=== PATIENT | male | born 1935 | race African-American/Black ===

== ENCOUNTER 2020-07-02 11:43 | Emergency (ER) | payer OTHER, SELFPAY ==
[~2020-07-02] VITALS: Ht 170.2 cm; Wt 65.0 kg
[2020-07-02 11:59] VITALS: BP 128/61
== END 2020-07-02 12:00 | disposition home or self-care (01) ==
LOC: ER 11:43 → CANBEDREQ 07-03 09:34
DX: R51.9 Headache, unspecified (principal); Z53.21 Procedure and treatment not carried out due to patient leaving prior to being seen by health care provider